=== PATIENT | female | born 1970 | race Caucasian/White ===

== ENCOUNTER 2019-05-08 00:41 | Day surgery (SDC) | payer OTHER, SELFPAY ==
[2019-05-05 15:32] VITALS: BMI 50.3
--- NOTE | 2019-05-08 07:48 | WPDANESEPPF ---
Anes - Initial Pre Proc Eval Procedure: Operation Date: 05/08/19 09:00 Proposed Procedures p Esophagogastroduodenoscopy & Colonoscopy - Jadon Lombardo MD Date/Time: 05/08/19 07:48 Surgeon: Jadon Lombardo MD Pre Op Diagnosis: colitis, diarrhea, fecal incontinence/urgency Patient Data Age: 48 Gender: F Height: 5 ft 8 in Weight: 150 kg Allergies Allergy/AdvReac Type Severity Reaction Status Date / Time amoxicillin Allergy Rash Verified 05/05/19 15:38 codeine AdvReac Nausea and Verified 05/05/19 15:38 Vomiting Home Medications Medication Instructions Recorded Confirmed Type buspirone 30 mg PO DAILY 05/05/19 05/05/19 History hyoscyamine sulfate 0.375 mg PO BID 05/05/19 05/05/19 History magnesium oxide 400 mg PO DAILY 05/05/19 05/05/19 History mesalamine [Apriso] 0.375 g PO DAILY 05/05/19 05/05/19 History sertraline 50 mg PO DAILY 05/05/19 05/05/19 History triamterene-hydrochlorothiazid 37.5 tablet PO DAILY 05/05/19 05/05/19 History Patient hx anesthesia problems: none Family hx anesthesia problems: none PMFSH Past Medical History Medical History Hypertension Ulcerative colitis Anes - Eval Final PreProcedure Day of Procedure 05/08/19 07:48 Patient weight: super morbidly obese Heart: regular rate and rhythm Lungs: clear to auscultation Airway: Mallampati scale class II Neurological: alert and oriented Last oral intake: >/= 8 hours ASA classification: III Emergent: yes Anesthetic plan: proceed Anesthesia type and monitoring: general GIVS and standard monitoring Informed Consent: The patient's anesthetic plan and its attendant risks and benefits were discussed with the patient/family/POA. Questions were solicited and answers provided to the satisfaction of the patient/family/POA.
[2019-05-08 07:56] VITALS: BP 141/82; PULSE 95; RESP 20; TEMP 36.6; O2SAT 97
[2019-05-08] MEDS: LACTATED RINGERS 1,000 ML 150 ML IV CONT (08:19)
--- NOTE | 2019-05-08 09:30 | WPDGICN ---
Assessment and Plan Additional Plan H/O UC with FHx of colon cancer with BRBPR, change in BH and bloating-> EGD and Colonoscopy. GI Consult Note Consult date/time: 05/08/19 09:30 HPI: Jeniffer Neri is a 48 year old female [facility] Past Medical History Medical History Hypertension Ulcerative colitis Meds Home Medications and Allergies Home Medications Medication Instructions Recorded Confirmed Type buspirone 30 mg PO DAILY 05/05/19 05/05/19 History hyoscyamine sulfate 0.375 mg PO BID 05/05/19 05/05/19 History magnesium oxide 400 mg PO DAILY 05/05/19 05/05/19 History mesalamine [Apriso] 0.375 g PO DAILY 05/05/19 05/05/19 History sertraline 50 mg PO DAILY 05/05/19 05/05/19 History triamterene-hydrochlorothiazid 37.5 tablet PO DAILY 05/05/19 05/08/19 History Allergies Allergy/AdvReac Type Severity Reaction Status Date / Time amoxicillin Allergy Rash Verified 05/08/19 08:21 codeine AdvReac Nausea and Verified 05/08/19 08:21 Vomiting Vital Signs Vital Signs - 24 hr 05/08/19 07:56 Temperature 36.6 C Pulse Rate 95 Respiratory Rate 20 Blood Pressure 141/82 H Pulse Oximetry 97
[2019-05-08 10:15] VITALS: BP 128/75; PULSE 79; RESP 20; O2SAT 100
[2019-05-08 10:25] VITALS: BP 139/79; PULSE 75; RESP 20; O2SAT 100
[2019-05-08 10:35] VITALS: BP 135/83; PULSE 77; RESP 20; O2SAT 100
--- NOTE | 2019-05-08 11:03 | SUR.PHASEII ---
WAITING FOR PATIENT TO SPEAK WITH MD.
== END 2019-05-08 11:23 | disposition home or self-care (01) ==
PROVIDERS: PCP Family Medicine; Visit Provider Internal Medicine Gastroenterology
PROC: 0DJ08ZZ Inspection of Upper Intestinal Tract, Via Natural or Artificial Opening Endoscopic (ICD-10-PCS; CPT 43235; principal; 2019-05-08 09:00)
DX: K51.011 Ulcerative (chronic) pancolitis with rectal bleeding (principal); K51.012 Ulcerative (chronic) pancolitis with intestinal obstruction; K63.5 Polyp of colon; I10 Essential (primary) hypertension; Z80.0 Family history of malignant neoplasm of digestive organs; E66.01 Morbid (severe) obesity due to excess calories; Z68.42 Body mass index [BMI] 45.0-49.9, adult
CPT/HCPCS: 43235; 45385; 45380; 88305; J2704; J7120